=== PATIENT | male | born 1935 | race Caucasian/White ===

== ENCOUNTER → 2016-11-06 | Outpatient (CLI) | payer MEDICARE, BC | LOC: PCVCCLINIC 14:00 | PROVIDERS: ATTEND Internal Medicine | DX: Z95.4 Presence of other heart-valve replacement (principal); I50.9 Heart failure, unspecified; J44.9 Chronic obstructive pulmonary disease, unspecified; E11.9 Type 2 diabetes mellitus without complications; E78.5 Hyperlipidemia, unspecified | CPT/HCPCS: 80061; 93005; G0463 ==

== ENCOUNTER → 2017-07-03 | Outpatient (CLI) | payer MEDICARE, BC ==
--- NOTE | 2017-07-03 15:32 | PCVCIMAG ---
APPROVED REPORT Study performed: 07/03/2017 14:09:13 EXAM: Comprehensive 2D, Doppler, and color-flow Echocardiogram Patient Location: Echo lab Status: routine BSA: 2.26 HR: 102 bpmBP: 150/85 mmHg Rhythm: NSR Other Information Study Quality: Poor Indications Hypertension, diabetes, AVR, copd, 2D Dimensions LVOT Diam: 18.84 (18-24mm) Left Atrium: 45.06 (27-40mm) Aortic Root: 29.07 mm Volumes Left Atrial Volume (Systole) Single Plane 4CH: 95.61 mLSingle Plane 2CH: 77.57 mL LA ESV Index: 41.00 mL/m2 Aortic Valve AoV Peak Omid.: 2.49 m/s AO Peak Gr.: 24.82 mmHgLVOT Max P.79 mmHg AO Mean Gr.: 14.65 mmHgLVOT Mean P.82 mmHg AO V2 Mean: 1.79 m/sLVOT Max V: 1.79 m/s AO V2 VTI: 50.77 cmLVOT Mean V: 1.32 m/s TERESSA (VTI): 1.71 [id number] V1 VTI: 31.10 cm TERESSA Vmax: 2.00 cm2 SV (LVOT): 86.64 mL Mitral Valve E/A Ratio: 130.0 MV E Max Omid.: 1.30 m/s MV A Omid.: 0.01 m/s IVRT: 103.81 ms Left Ventricle The left ventricle is normal size. There is normal LV segmental wall motion. There is normal left ventricular wall thickness. Left ventricular systolic function is normal. The left ventricular ejection fraction is within the normal range. LVEF is 55-60%. This study is not technically sufficient to allow evaluation of the LV diastolic function. Right Ventricle The right ventricle is normal size. The right ventricular systolic function is normal. Atria The left atrium size is normal. The right atrium size is normal. Aortic Valve #23 Bovine AVR. Peak gradient 24mmHg, mean gradient 15mmHg No aortic regurgitation is present. There is no aortic valvular stenosis. Mitral Valve Moderate mitral annular calcification. Mild calcific leaflet changes There is no mitral valve regurgitation noted. No evidence of mitral valve stenosis. Tricuspid Valve The tricuspid valve is normal in structure. There is no tricuspid valve regurgitation noted. Pulmonic Valve The pulmonary valve is normal in structure. There is no pulmonic valvular regurgitation. Great Vessels The aortic root is normal in size. IVC is normal in size and collapses with >50% inspiration Pericardium There is no pericardial effusion. <Conclusion> Left ventricular systolic function is normal. There is normal LV segmental wall motion. LVEF is 55-60%. #23 Bovine AVR. Peak gradient 24mmHg, mean gradient 15mmHg There is no aortic valvular stenosis. Normally functioning valve. Moderate mitral annular calcification. Mild calcific leaflet changes There is no mitral valve regurgitation noted. There is no pericardial effusion.
== END | disposition home or self-care (01) ==
LOC: PCVCIMAG 14:14
PROVIDERS: ATTEND Internal Medicine
DX: I34.8 Other nonrheumatic mitral valve disorders (principal); I11.0 Hypertensive heart disease with heart failure; I50.32 Chronic diastolic (congestive) heart failure; E78.5 Hyperlipidemia, unspecified; I27.81 Cor pulmonale (chronic); E11.9 Type 2 diabetes mellitus without complications; J44.9 Chronic obstructive pulmonary disease, unspecified; I44.0 Atrioventricular block, first degree; Z95.4 Presence of other heart-valve replacement; Z87.891 Personal history of nicotine dependence; Z91.041 Radiographic dye allergy status
CPT/HCPCS: 80061; 93005; 93306; G0463

== ENCOUNTER → 2018-07-07 | Outpatient (CLI) | payer MEDICARE, BC ==
--- NOTE | 2018-07-07 15:58 | PCVCIMAG ---
APPROVED REPORT Study performed: 07/07/2018 14:50:44 EXAM: Comprehensive 2D, Doppler, and color-flow Echocardiogram Patient Location: Echo lab Status: routine BSA: 2.39 HR: 76 bpm Rhythm: Atrial Flutter Other Information Study Quality: Technically Limited Indications Aortic Valve Disease Hypertension/HDD Aflutter, Cardiomyopathy, COPD, 2D Dimensions LVEF(%): 50.97 (>50%) IVSd: 12.39 (7-11mm)LVOT Diam: 18.82 (18-24mm) LVDd: 51.07 mm PWd: 10.86 (7-11mm)Ascending Ao: 36.56 (22-36mm) LVDs: 37.72 (25-40mm) Left Atrium: 48.48 (27-40mm) Aortic Root: 20.95 mm LV Single Plane 4CH: 59.30 % LV Single Plane 2CH: 28.50 %Jimenes's LVEF: 43.90 % Biplane EF: 46.3 % Volumes Left Atrial Volume (Systole) Single Plane 4CH: 77.46 mLSingle Plane 2CH: 84.67 mL LA ESV Index: 37.00 mL/m2 Aortic Valve AoV Peak Omid.: 3.03 m/s AO Peak Gr.: 36.62 mmHgLVOT Max P.55 mmHg AO Mean Gr.: 22.83 mmHgLVOT Mean P.98 mmHg AO V2 Mean: 2.31 m/sLVOT Max V: 1.07 m/s AO V2 VTI: 61.49 cmLVOT Mean V: 0.85 m/s TERESSA (VTI): 1.05 [id number] V1 VTI: 23.16 cm TERESSA Vmax: 0.98 cm2 SV (LVOT): 64.40 mL Pulmonary Valve PV Peak Gr.: 2.95 mmHg Tricuspid Valve TR Peak Omid.: 2.51 m/s TR Peak Gr.: 25.29 mmHg Left Ventricle The left ventricle is normal size. There is normal LV segmental wall motion. There is normal left ventricular wall thickness. Left ventricular systolic function is normal. The left ventricular ejection fraction is within the normal range. LVEF 55%. This study is not technically sufficient to allow evaluation of the LV diastolic function. Right Ventricle The right ventricle is normal size. The right ventricular systolic function is normal. Atria The left atrium size is normal. The right atrium size is normal. Aortic Valve Mildly sclerotic leaflets No aortic regurgitation is present. #23 Bovine bioprosthetic aortic Valve. Peak gradient 37mmHg. Mean gradient 23mmHg. TERSESA 1.0cm2. Mitral Valve Moderate mitral annular calcification. There is no mitral valve regurgitation noted. No evidence of mitral valve stenosis. Tricuspid Valve The tricuspid valve is normal in structure. Trace tricuspid regurgitation. Pulmonary artery pressure 35mmHg. Pulmonic Valve The pulmonary valve is normal in structure. There is no pulmonic valvular regurgitation. Great Vessels The aortic root is normal in size. IVC is normal in size and collapses with >50% inspiration Pericardium There is no pericardial effusion. <Conclusion> Left ventricular systolic function is normal. There is normal LV segmental wall motion. LVEF 55%. #23 bovine bioprosthetic aortic valve. (Peak gradient 37mmHg, mean gradient 23mmHg). TERESSA 1.0cm2. No aortic regurgitation. Moderate mitral annular calcification. No mitral valve regurgitation Trace tricuspid regurgitation. Pulmonary artery pressure 35mmHg. There is no pericardial effusion.
== END | disposition home or self-care (01) ==
LOC: PCVCIMAG 15:13
PROVIDERS: ATTEND Internal Medicine
DX: I11.0 Hypertensive heart disease with heart failure (principal); I50.32 Chronic diastolic (congestive) heart failure; E78.5 Hyperlipidemia, unspecified; I27.81 Cor pulmonale (chronic); E11.9 Type 2 diabetes mellitus without complications; J44.9 Chronic obstructive pulmonary disease, unspecified; Z79.4 Long term (current) use of insulin; Z95.3 Presence of xenogenic heart valve; Z79.899 Other long term (current) drug therapy
CPT/HCPCS: 80061; 93005; 93306; G0463